=== PATIENT | male | born 1975 | race Caucasian/White ===

== ENCOUNTER 2017-04-03 01:03 | Emergency (ER) | payer OTHER, MEDICAID ==
[~2017-04-03] VITALS: Ht 177.8 cm; Wt 113.4 kg
--- NOTE | 2017-04-03 01:10 | NUR ---
To bed 9 a 41 yo male patient bibra w c/o alcohol intoxication. Upon arrival to er, patient is asleep, withdraws from deep pain, vss, nondiaphoretic. Initiated safety measures. Placed cardiac and vs monitoring. Awaiting for er md eval. Reyes at bedside.
[2017-04-03] MEDS ORDERED: ONDANSETRON HCL/PF 4 MG/2 ML VIAL ONE (01:57)
[2017-04-03] MEDS: ONDANSETRON HCL/PF 4 MG/2 ML VIAL IM ONE ×2 (02:03→02:29)
--- NOTE | 2017-04-03 02:12 | NUR ---
The patient was placed on a nutritional chemist; no acute distress after anti-emetics and intravenous fluid administration
--- NOTE | 2017-04-03 02:14 | NUR ---
family at bedside - very supportive
--- NOTE | 2017-04-03 02:24 | NUR ---
asleep; no acute distress- family - cousin- at bedside
[2017-04-03] MEDS ORDERED: ONDANSETRON HCL/PF 4 MG/2 ML VIAL IVP ONE (02:30)
[2017-04-03] MEDS ORDERED: IV NS 0.9% 1,000 ML BAG IV ONE (02:30)
--- NOTE | 2017-04-03 04:30 | NUR ---
PATIENT IS AWAKE AT THIS TIME, REORIENTATION DONE. VSS. PATIENT ABLE TO WALK TO THE BATHROOM.
--- NOTE | 2017-04-03 04:38 | NUR ---
IV removed. Catheter intact and site benign. Pressure and 4x4 applied to site. No bleeding noted. Patient discharged to home in stable condition. Written and verbal after care instructions given. Patient verbalizes understanding of instruction. Patient is ambulatory, accompanied by cousin. No further complaints.
[2017-04-03 04:50] VITALS: BP 111/59
== END 2017-04-03 04:50 | disposition home or self-care (01) ==
LOC: ER 01:05
DX: F10.129 Alcohol abuse with intoxication, unspecified (principal)
CPT/HCPCS: 96360; 96374; 99284; A4606; J2405; J7030; Z7610